=== PATIENT | female | born 1995 | race Caucasian/White ===

== ENCOUNTER 2022-12-23 11:50 | Emergency (ER) | payer MEDICAID ==
[2022-12-23 12:16] VITALS: BP 97/51
--- NOTE | 2022-12-23 13:31 | ED Physician Documentation ---
History of Present Illness - Stated complaint Stated Complaint: MOUTH CUTS - Chief complaint Chief Complaint: Heent - Additonal information Additional information: 27-year-old female presents emergency department for evaluation of cracking and pain at the corner of her mouth. Patient states that she has been sailing and has had cracked lips recently but the cracking at the corners of her mouth is new. She admits to a poor diet and states she eats a lot of sugar. She denies a history of diabetes. Also concerned that she has a return of a pilonidal abscess. Had a pilonidal cyst drained about 10 years ago and over the last 2 days has noticed some very slight pain in the gluteal cleft region. PD PAST MEDICAL HISTORY - Present Medications Home Medications: Ambulatory Orders Medication Instructions Recorded Confirmed No Known Home Medications 12/23/22 12/23/22 - Allergies Allergies/Adverse Reactions: Allergies Allergy/AdvReac Type Severity Reaction Status Date / Time No Known Drug Allergies Allergy Verified 12/23/22 12:16 PD ED PE NORMAL - General General: Alert and oriented X 3, Well developed/nourished - HEENT HEENT: Atraumatic, Moist mucous membranes, Other (cracking, mild erythema b ialterally at the corners of mouth. no surrounding erythema. no intraoral lesions, mucoaal lesions) - Cardiac Cardiac: RRR, No murmur - Respiratory Respiratory: No respiratory distress, Clear bilaterally - Abdomen Abdomen: Normal bowel sounds, Soft, Non tender, Non distended - Back Back: No CVA TTP, Other (no swelling, redness tenderness noted in the gluteal cleft) - Derm Derm: Normal color, Warm and dry - Neuro Neuro: Alert and oriented X 3, cipher expert 2-12 intact Eye Opening: Spontaneous Motor: Obeys Commands Results - Vitals Vitals: Vital Signs - 24 hr 12/23/22 12:13 Temperature 36.8 C Heart Rate 52 L Respiratory 16 Rate Blood Pressure 97/51 L O2 Saturation 99 Oxygen O2 Source Room air PD Medical Decision Making - ED course Complexity details: reviewed results, re-evaluated patient, d/w patient ED course: 27-year-old female presents emergency department with concerns that she has cracking at the corners of her mouth for the last few days. She does have some generalized cracked lips which she attributes to a sailing adventure. She also admits to poor diet. Clinically the exam of the mouth is most consistent with angular cheilitis. This may be in part due to to diet or even when weather expo sure. I made the recommendation for her to use steroid ointment for 2 to 3 days followed by antibiotic ointment. Clinically this is not consistent with a fungal infection no findings of thrush. She also had concerns that she had a recurrence of her pilonidal cyst that she had drained a number of years ago. On exam there is nothing to suggest a recurrent pilonidal cyst or abscess. It may be simply too early before is clinically presented. I have advised her to use warm compress in this area. She is to return for worsening symptoms Departure - Departure Disposition: 01 Home, Self Care Clinical Impression: Angular cheilitis Condition: Stable Record reviewed to determine appropriate education?: Yes Comments: The cracking and pain at the corner of your mouth is due to a condition called angular cheilitis. Most often it is seen in kids that have some nutritional deficiencies. It can also be seen with low-grade bacterial or fungal infections near the mouth. I do recommend that you apply a thin layer of hydrocortisone 1% ointment to the corners of your mouth twice daily for 2 to 3 days. This will help reduce pain and inflammation. Following this you should apply bacitracin ointment liberally to the cracking of the mouth twice daily until fully healed. You did report that you have a history of a poor diet or a lot of sugar intake. I do recommend a daily multivitamin. Return to the ER if you find that you are having worsening swelling or cracking despite these treatment measures. He also reported history of a pilonidal cyst. At this time there does not appear to be a return of the abscess. It is possible that it simply too early for us to see. I do recommend a warm compress applied to this area for 10 minutes 2-3 times a day. However if at any point you find that you have the swelling and redness and severe pain that you had in the past please return to the ER and at that time an incision and drainage can be completed.
== END 2022-12-23 13:41 | disposition home or self-care (01) ==
LOC: ED 11:50
DX: K13.0 Diseases of lips (principal); R44.8 Other symptoms and signs involving general sensations and perceptions
CPT/HCPCS: 99281; 99282